=== PATIENT | female | born 1995 | race Caucasian/White ===

== ENCOUNTER 2017-06-07 16:18 | Emergency (ER) | payer SELFPAY ==
[2017-06-07 17:46] LABS: BASOPHILS 0.1 % (0-2); HEMATOCRIT 37.9 % (36.0-48.0); HEMOGLOBIN 12.5 g/dL (12-16); IMMATURE GRANULOCYTES 0.2 % (0-5); LYMPHOCYTES 23.3 % (15-50); MCH 30.6 pg (26.0-34.0); MCV 92.7 fL (80.0-100.0); MEAN PLATELET VOLUME 10.4 fL (7.4-10.4); MONOCYTES 8.8 % (2-11); NEUTROPHILS 66.6 % (40-80); PLATELET COUNT 234 10x3/uL (130-400); RBC 4.09 10x6/uL (4.00-5.40); RDW 14.3 % (11.5-14.5); WBC 8.3 10x3/uL (4.8-10.8)
[2017-06-07 17:54] LABS: APPEARANCE HAZY (CLEAR); BILIRUBIN NEGATIVE (NEGATIVE); COLOR YELLOW (YELLOW); GLUCOSE NEGATIVE (NEGATIVE); KETONE NEGATIVE (NEGATIVE); NITRITE NEGATIVE (NEGATIVE); PROTEIN NEGATIVE (NEGATIVE); UROBILINOGEN NORMAL (NORMAL)
[2017-06-07 17:55] LABS: BACTERIA MODERATE /hpf (NONE SEEN); RED CELLS - URINE OCC /hpf (0-5)
[2017-06-07 18:02] LABS: HCG SERUM NEGATIVE (NEGATIVE)
== END 2017-06-07 18:19 | disposition home or self-care (01) ==
LOC: D.ER 16:18
PROVIDERS: Family Medicine
DX: L03.115 Cellulitis of right lower limb (principal); N76.0 Acute vaginitis; B96.89 Other specified bacterial agents as the cause of diseases classified elsewhere; F17.200 Nicotine dependence, unspecified, uncomplicated

== ENCOUNTER 2018-02-16 14:55 | Emergency (ER) | payer OTHER ==
[~2018-02-16] VITALS: Ht 165.1 cm; Wt 64.1 kg
[2018-02-16 15:15] VITALS: Ht 165.1 cm; Wt 64.1 kg
[2018-02-16 15:56] LABS: BASOPHILS 0.2 % (0-2); EOSINOPHILS 0.2 % (0-7); HEMATOCRIT 40.8 % (36.0-48.0); HEMOGLOBIN 14.2 g/dL (12-16); IMMATURE GRANULOCYTES 0.1 % (0-5); LYMPHOCYTES 12.8 % (15-50); MCH 31.6 pg (26.0-34.0); MCHC 34.8 g/dL (31.0-37.0); MCV 90.9 fL (80.0-100.0); MEAN PLATELET VOLUME 10.4 fL (7.4-10.4); MONOCYTES 5.6 % (2-11); NEUTROPHILS 81.1 % (40-80); PLATELET COUNT 231 10x3/uL (130-400); RBC 4.49 10x6/uL (4.00-5.40); RDW 12.9 % (11.5-14.5); WBC 8.5 10x3/uL (4.8-10.8)
[2018-02-16 15:59] LABS: APPEARANCE HAZY (CLEAR); BILIRUBIN NEGATIVE (NEGATIVE); COLOR YELLOW (YELLOW); GLUCOSE NEGATIVE (NEGATIVE); KETONE LARGE mg/dL (NEGATIVE); NITRITE NEGATIVE (NEGATIVE); PROTEIN 1+ mg/dL (NEGATIVE); SPECIFIC GRAVITY 1.025 (1.005-1.020); UROBILINOGEN NORMAL (NORMAL)
[2018-02-16 16:01] LABS: BACTERIA MANY /hpf (NONE SEEN); MUCUS <1+ /lpf (NONE SEEN); RED CELLS - URINE 0-5 /hpf (0-5)
[2018-02-16 16:25] LABS: ALBUMIN 4.1 g/dL (3.4-5.0); ALKALINE PHOSPHATASE 50 U/L (46-116); BILIRUBIN - TOTAL 0.65 mg/dL (0.2-1.3); CALC OSMOLALITY 270 mosm/kg (275-300); CALCIUM 9.8 mg/dL (8.5-10.1); CARBON DIOXIDE 24.7 mmol/L (21.0-32.0); CHLORIDE - SERUM 101 mmol/L (98-107); CREATININE - SERUM 0.7 mg/dL (0.6-1.3); GLUCOSE 85 mg/dL (74-106); POTASSIUM - SERUM 3.7 mmol/L (3.5-5.1); SODIUM 137 mmol/L (136-145); UREA NITROGEN 8 mg/dL (7-18); eGFR NON AFRICAN AMERICAN > 90 mL/min (90-120)
[2018-02-16 16:45] LABS: ALT (SGPT) 17 U/L (10-68); HCG - QUANTITATIVE (MATERNAL) 144486 mIU/mL
[2018-02-16] MEDS ORDERED: ZOFRAN ODT4 MG/UDTAB PO (18:43)
[2018-02-16] MEDS ORDERED: MACROBID100 MG PO (18:43)
[2018-02-16 19:40] VITALS: BP 114/58
== END 2018-02-16 19:10 | disposition home or self-care (01) ==
LOC: D.ER 14:55
PROVIDERS: Family Medicine
DX: O21.9 Vomiting of pregnancy, unspecified (principal); Z3A.09 9 weeks gestation of pregnancy; O23.41 Unspecified infection of urinary tract in pregnancy, first trimester

== ENCOUNTER 2018-09-21 18:09 | Inpatient (IN) | payer OTHER ==
[~2018-09-21] VITALS: Ht 165.1 cm; Wt 76.2 kg
[~2018-09-21 18:09] MED LIST: MACROBID100 MG PO; ZOFRAN ODT4 MG/UDTAB PO
[2018-09-21] MEDS ORDERED: PREPLUS CA-FE1 EACH PO (18:42)
[2018-09-21 18:43] VITALS: BP 118/62; Ht 165.1 cm; Wt 76.2 kg
[2018-09-21 20:04] LABS: HEMATOCRIT 32.9 % (36.0-48.0); HEMOGLOBIN 10.8 g/dL (12-16); MCH 28.3 pg (26.0-34.0); MCHC 32.8 g/dL (31.0-37.0); MCV 86.4 fL (80.0-100.0); MEAN PLATELET VOLUME 11.1 fL (7.4-10.4); RBC 3.81 10x6/uL (4.00-5.40); RDW 13.4 % (11.5-14.5)
[2018-09-21 20:32] LABS: APPEARANCE SL CLDY (CLEAR); BILIRUBIN NEGATIVE (NEGATIVE); COLOR YELLOW (YELLOW); GLUCOSE NEGATIVE (NEGATIVE); KETONE MODERATE mg/dL (NEGATIVE); NITRITE NEGATIVE (NEGATIVE); PROTEIN NEGATIVE (NEGATIVE); UROBILINOGEN NORMAL (NORMAL)
[2018-09-21 20:33] LABS: BACTERIA MODERATE /hpf (NONE SEEN); EPITHELIAL CELLS 0-5 /hpf (0-5); MUCUS <1+ /lpf (NONE SEEN); RED CELLS - URINE RARE /hpf (0-5); WHITE CELLS - URINE 0-5 /hpf (0-5); YEAST >1+ WITH HYPHAE /hpf (NONE SEEN)
[2018-09-21 23:30] LABS: UDS - AMPHET NEGATIVE QUAL (NEGATIVE); UDS - BARB NEGATIVE QUAL (NEGATIVE); UDS - BENZO NEGATIVE QUAL (NEGATIVE); UDS - COCAINE NEGATIVE QUAL (NEGATIVE); UDS - OPIATE NEGATIVE QUAL (NEGATIVE); UDS - PCP NEGATIVE QUAL (NEGATIVE); UDS - THC NEGATIVE QUAL (NEGATIVE)
[2018-09-22] VITALS (8 sets, daily range): BP systolic 121–139; BP diastolic 70–91
--- NOTE | 2018-09-22 17:29 | NUR ---
FUNDUS IS MIDLINE AND ONE FINGER WIDTH BELOW THE UMBILICUS. MARYLIN PAD IN PLACE, SCANT DISCHARGE NOTED ON PAD. NO CLOTS PRESENT. WILL CONTINUE TO MONITOR.
--- NOTE | 2018-09-22 18:00 | NUR ---
REC'D PT BACK FROM OR POST . PT AA&O X 4. PAIN ASSESSED. PT RATES PAIN 2/10. REPORT REC'D FROM STEVAN OR RECOVERY NURSE. PT ABLE TO TRANSFER SELF TO BED. PIV TO RT HAND W/LR INFUSING VIA GRAVITY. PLACED ON PUMP AT THIS TIME TO INFUSE AT 15ML/HR. 2ND IV SITE IS A SALINE LOCK TO LEFT HAND. FLUSHED AT THIS TIME. PATENT. FUNDUS FIRM,U/1,SCANT LOCHIA NOTED.CLEAN PERIPAD PLACED AT THIS TIME. LOW TRANSVERSE INCISION W/ABD DRESSING PRESENT. FAINT DRAINAGE NOTED. BANDAGE NOT SATURATED.ICE CAP TO INCISION SITE. MODERATE LABIAL SWELLING NOTED. ICE CAP TO PERINEUM. DOMINGUEZ IN PLACE DRAINING VIA GRAVITY AT BEDSIDE. SCD WRAPS IN PLACE BILATERALLY. SCD PUMP TO BE OBTAINED. VITAL SIGNS STABLE. SEE POST OP VITALS FLOWSHEET. REPORT REC'D THAT PT RECEIVED METHERGINE AND HEMOBATE POST DELIVERY AND 1 UNIT PRBCS IN OR/RECOVERY. PT HAS 1 ADDITIONAL UNIT OF PRBC'S READY IN LAB.
--- NOTE | 2018-09-22 18:08 | NUR ---
to room 1220 via bed from rr. awake alert and conversing. iv -rt hand 1000cc ns with pitocin 20 units to pump at 125cc/hr. iv in lt hand flushed with 10ccns per l. anthony marks. abd dressing cd&i. ice cap placed to abd. perineal swelling noted- ice cap to this also. de los santos cath with clear yellow urine noted. scds on.
--- NOTE | 2018-09-22 18:15 | NUR ---
FUNDUS FIRM, U/1, SCANT LOCHIA NOTED.
--- NOTE | 2018-09-22 18:24 | NUR ---
infant in room. nursery nurse in room.
--- NOTE | 2018-09-22 18:30 | NUR ---
FUNDUS FIRM,U/U, SCANT LOCHIA NOTED. SPOUSE AT BEDSIDE.
--- NOTE | 2018-09-22 19:15 | NUR ---
REPORT GIVEN TO Salma HEAD RN
--- NOTE | 2018-09-22 19:33 | NUR ---
PM ROUNDS MADE, PT HOLDING BABY AND VISITING WITH FAMILY AND FRIENDS, INFORMED PT THAT I WILL COME BACK SHORTLY TO DO ASSESSMENT, PT VERBALIZES UNDERSTANDING, DENIES NEEDS AT THIS TIME
[2018-09-22 20:13] LABS: BASOPHILS 0.1 % (0-2); EOSINOPHILS 0 % (0-7); HEMATOCRIT 31.9 % (36.0-48.0); HEMOGLOBIN 10.3 g/dL (12-16); IMMATURE GRANULOCYTES 0.2 % (0-5); LYMPHOCYTES 5.4 % (15-50); MCH 28.1 pg (26.0-34.0); MCHC 32.3 g/dL (31.0-37.0); MCV 87.2 fL (80.0-100.0); MEAN PLATELET VOLUME 10.8 fL (7.4-10.4); MONOCYTES 5.4 % (2-11); NEUTROPHILS 88.9 % (40-80); PLATELET COUNT 207 10x3/uL (130-400); RBC 3.66 10x6/uL (4.00-5.40); RDW 13.6 % (11.5-14.5)
[2018-09-22 20:25] LABS: WBC 14.4 10x3/uL (4.8-10.8)
--- NOTE | 2018-09-22 20:45 | NUR ---
ASSESSMENT PER FLOW SHEET, VS OBTAINED, IV IN RIGHT HAND INTACT WITH NO REDNESS OR EDEMA INFUSING NS WITH PITOCIN VIA PUMP AT 125 ML/HR PER MD ORDERS, SEE EMAR, PT RATES INC PAIN 07/24, USING DILAUDID LAUNDRY CLERK INST, FF, ML, U/U, LITE TO MOD BLEEDING NOTED WITH NO CLOTS, MARYLIN CARE DONE WITH WET WARM WASH CLOTHS, MARYLIN PAD AND BLUE CHUX CHANGED, PT GIA WELL, DOMINGUEZ CATH INTACT DRAINING CLEAR YELLOW URINE, EMPTIED DOMINGUEZ AT THIS TIME, [employer] WITH DRESSING CDI, FRESH ICE PACK TO ABD, SCD'S NOTED TO BE OFF AT THIS TIME, SCD'S PLACED AND WORKING PROPERLY, PT DENIES NEEDS AT THIS TIME, BABY IN NSY, FAMILY BACK TO ROOM, CHAIRS PROVIDED FOR FAMILY
--- NOTE | 2018-09-22 21:30 | NUR ---
PT HOLDING BABY, FAMILY MEMBER AT BEDSIDE, FOB TOOK SOME BELONGINGS HOME, PT DENIES NEEDS AT THIS TIME
--- NOTE | 2018-09-22 22:40 | NUR ---
PT HOLDING BABY, VISITING WITH FOB AND FAMILY, EMPTIED 225 MLS OF CLEAR YELLOW URINE FROM DOMINGUEZ CHAMBER TO DOMINGUEZ BAG, PT USING SOCIAL [employer] INTERN INST, RATES INC PAIN 1-2, ADM METHERGINE PO PER MD ORDERS, SEE EMAR, PT DENIES NEEDS AT THIS TIME
[2018-09-23 00:30] VITALS: BP 127/79
--- NOTE | 2018-09-23 00:30 | NUR ---
PT AWAKE, HOLDING BABY, BABY TO FOB'S ARMS, VS OBTAINED, EMPTIED 250 MLS OF CLEAR YELLOW URINE FROM DOMINGUEZ CHAMBER TO DOMINGUEZ BAG, MARYLIN CARE DONE WITH WET WARM WASH CLOTHS, MARYLIN PAD AND BLUE CHUX CHANGED, LITE-MOD BLEEDING NOTED WITH NO CLOTS, ICE PACK TO PERINIUM, FF, ML, U/U, FRESH ICE PACK TO ABD, SCD'S CONTINUE ON AND WORKING PROPERLY, DENIES NEEDS AT THIS TIME, BED IN LOW POSITION, SIDE RAILS X 2, CALL LIGHT IN REACH
--- NOTE | 2018-09-23 00:50 | NUR ---
NEW BAG OF NS WITH PITOCIN HUNG INFUSING VIA PUMP AT 125 ML/HR PER MD ORDERS, SEE EMAR
--- NOTE | 2018-09-23 02:20 | NUR ---
PT AWAKE, FOB CHANGING INFANTS DIAPER, PT REQUESTED AND SERVED FRESH H20, DENIES FURTHER NEEDS
[2018-09-23 04:33] VITALS: BP 131/87
--- NOTE | 2018-09-23 04:33 | NUR ---
ROUNDS COMPLETED, VSS, AFEBRILE, RESP EVEN AND UNLABORED, PT REPORTS PAIN A 6 ON NUMERIC PAIN SCALE, ENCOURAGED TO USE ORE SAMPLER BUTTON AND INSTRUCTIONS GIVEN ON USE, PT STATES "OH I DIDN'T KNOW I COULD PUSH IT THAT OFTEN" AND THEN DEMONSTRATES USE. ENCOURAGED TO NOTIFY THIS RN IF PAIN UNRELIEVED OR REMAINS UNACCEPTABLE, PT STATES UNDERSTANDING, FUNDUS FIRM AT U/2 AND MIDLINE, LOCHIA RUBRA LIGHT AMOUNT WITH PEA-SIZED CLOTS X2 NOTED ON PERIPAD, PERICARE AND DOMINGUEZ CARE PROVIDED, PERIPADS REPLACED, FRESH ICE PACK OVERLAY APPLIED TO LOW TRANSVERSE INCISIONAL DRESSING, DRESSING CDI TO INSPECTION AT THIS TIME, DOMINGUEZ TO GRAVITY DRAINAGE NOTED WITH URINE IN TUBING AND COLLECTION CHAMBER. SIPS ICE WATER PROVIDED UPON REQUEST, IN FOB'S ARMS AT PRESENT NAD NOTED. CALL LIGHT AND ORE SAMPLER BUTTON WITHIN EASY REACH OF PT, CONTINUE TO MONITOR.
[2018-09-23 06:21] LABS: BASOPHILS 0 % (0-2); EOSINOPHILS 0.1 % (0-7); HEMATOCRIT 28.1 % (36.0-48.0); IMMATURE GRANULOCYTES 0.2 % (0-5); LYMPHOCYTES 9.7 % (15-50); MCV 87.3 fL (80.0-100.0); MEAN PLATELET VOLUME 10.6 fL (7.4-10.4); MONOCYTES 6.6 % (2-11); NEUTROPHILS 83.4 % (40-80); RBC 3.22 10x6/uL (4.00-5.40); RDW 13.6 % (11.5-14.5); WBC 11.4 10x3/uL (4.8-10.8)
[2018-09-23 06:28] LABS: PLATELET COUNT 163 10x3/uL (130-400)
--- NOTE | 2018-09-23 06:32 | NUR ---
PT HOLDING BABY, PT INFORMED ME THAT DR MCDERMOTT WAS IN EARLIER, PT HAD QUESTIONS REGARDING THE PAIN MED, TALKED TO PT REGARDING POC, PT VERBALIZES UNDERSTANDING, DENIES FURTHER QUESTIONS OR NEEDS, FOB AT BEDSIDE
[2018-09-23 07:37] LABS: RAPID PLASMA REAGIN Non Reactive (Non Reactive)
--- NOTE | 2018-09-23 08:40 | NUR ---
NS WITH 20 UNITS PITOCIN INFUSION COMPLETED PER ORDERS D/C ALONG WITH SUPERVISOR CIGAR MAKING MACHINE. PT STATES UNDERSTANDING THAT PO PAIN MED WAS AVAILABLE BUT WOULD HAVE TO BE ASKED FOR. FAMILY AT BEDSIDE WITH ALSO IN ROOM.
--- NOTE | 2018-09-23 09:09 | NUR ---
PAIN MEDS GIVEN SCANNED TO EMAR, PT RATES PAIN AT INCISION SITE AT 7/10. BIKINI INCISION CLEAN AND DRY WITH MARIE IN PLACE, FUNDUS FIRM WITH MASSAGE AT U/1, LIGHT BLEEDING TO MARYLIN PAD WITHOUT CLOTS. BLUE PAD AND TOWELS CHANGED WITH PT LIFTING HER BOTTOM OFF THE BED. IV TO RIGHT HAND SALINE LOCKED, LEFT HAND WITH SALINE LOCK IN PLACE WITHOUT REDDNESS BUT PT COMPLAINS OF INCREASE TENDERNESS AT THIS SITE, STATES UNDERSTANDING THAT ORDERS WOULD BE REVIEWED TO SEE IF SALINE LOCK COULD BE REMOVED. DOMINGUEZ CATH TO BEDSIDE DRAIN WITH 1800ML CLEAR URINE REMOVED INTACT. BILAT SCD'S REMOVED, PT MOVING AROUND IN BED FREQUENTLY. DENIES NAUSEA AT THIS TIME. INFANT IN ROOM FOR FEEDING. PT UNDERSTANDS TO CALL FOR NURSE WHEN SHE FEELS NEED TO VOID. SIDE RAILS UP X 2 WITH CALL LIGHT IN REACH. FAMILY MEMBER ALSO AT BEDSIDE.
--- NOTE | 2018-09-23 10:45 | NUR ---
CALLED TO ROOM, PT REQUESTING TO GET UP TO BATHROOM. SHE IS ABLE TO MOVE HERSELF TO SITTING ON SIDE OF THE BED, DENIES NAUSEA BUT DOES C/O DIZZINESS, ENCOURAGED TO KEEP HER HEAD UP AND WAIT BEFORE STANDING UP. ONCE SHE RAISES HER HEAD SHE STATES DIZZINESS GOES AWAY. AMB TO BATHROOM WITH LITTLE ASSISTANCE NEEDED, PRIVACY GIVEN. PINK PAD ON BED CHANGED ALONG WITH PILLOW CASES. PT ABLE TO VOID 150ML AND DO HER OWN MARYLIN CARE. ASSISSTANCE GIVEN WITH MARYLIN PAD/MESH BREIFS. SHOWN TO USE MARYLIN PAD OVER INCISION TO PREVENT IRRATION. BACK TO BED AND POSITIONED FOR COMFORT WITH NO ASSISTANCE NEEDED.
--- NOTE | 2018-09-23 11:07 | NUR ---
Kat Rabago 09/23/18 LE@ 10:00 S: Patient states she has been working on trying to get infant to latch. Baby will just sleep and it's hard to wake for feeding. States for last feeding she tried latching baby for about 5 or so minutes then baby was given a bottle. Infant ate not to long ago. She would like to breastfeed just thinks she needs help. Verbally agrees to ask nursery staff for help with next feeding. O: Patient in bed. Family member in room holding . Asked how can I help with and congratulated on delivery. Informed patient takes time, practice, and patience in the beginning. Explained breastmilk composition, benefits of skin to skin, positions, normal feeding patterns for an exclusively breastfed infant, how to determine if baby is latched correctly, feeding cues, tips on waking a sleeping baby, and how benefits of practicing responsive feeding. Explained how to verify infant is getting enough milk by diaper count outputs. Please ask for help as needed with next feedings from nursery staff to latch infant. Asked if any other questions or concerns. A: Patient learning to breastfeed with baby, needs help with latching. P: Continue to support during hospital visit. Jason Brar, CLC
--- NOTE | 2018-09-23 11:10 | NUR ---
SALINE LOCK REMOVED FROM LEFT HAND, PT STATES THAT SEEMS TO BE HURTING MORE NOW, STILL NO REDDNESS OR SWELLING BUT FLINCHES WHEN AREA IS TOUCHED, REMOVED WITH CATH INTACT. LARGE ICE WATER PER REQUEST, IN CRIB AT BEDSIDE. SIDE RAILS UP X 2 WITH PHONE AND CALL LIGHT IN REACH.
--- NOTE | 2018-09-23 12:30 | NUR ---
Up to void with nurse at bedside but no assistance was needed. Voided 400ml without complaint and able to complete [place] care. Request made for pain med.
--- NOTE | 2018-09-23 13:04 | NUR ---
Pain med given as scanned to emar. Pt amb in halls pushing in crib with her mother at her side.
--- NOTE | 2018-09-23 13:50 | NUR ---
Sitting up in bed eating food brought in by family member. States that the burning at incision site is much better. Denies needs. in room, side rails up x2 with call light with in pt reach.
--- NOTE | 2018-09-23 14:57 | NUR ---
DR MCDERMOTT ON UNIT, VERIFIED VERBALLY METHERGINE ORDER. ORDER RECEIVED TO D/C AFTER 3 DOSES HAVE BEEN GIVEN.
[2018-09-23 20:33] VITALS: BP 124/83
--- NOTE | 2018-09-23 20:33 | NUR ---
PT REC'D IN BED AT THIS TIME. STATES THAT PAIN IS A 2 AT THIS TIME. LUNGS CLEAR. BS+ PT DENIES PASSING FLATUS AT THIS TIME. MARIE INTACT TO THE ABDOMEN. NO S/S OF INFECTION NOTED AT THIS TIME. . FUNDUS FIRM AND AT U/2 WITH SCANT LOCHIA NOTED. PT VOIDING WITHOUT DIFFICULTY AT THIS TIME. NO ACUTE DISTRESS NOTED AT THIS TIME. Salma CONNOR RN
--- NOTE | 2018-09-23 22:15 | NUR ---
PT IN SHOWER AT THIS TIME. BED LINENS CHANGED. NO DISTRESS NOTED. Salma CONNOR. RN
--- NOTE | 2018-09-23 23:55 | NUR ---
PT STATES PAIN IS A 3 AT THIS TIME. WILL CONTINUE TO MONITOR THIS SHIFT. Salma CONNOR RN
--- NOTE | 2018-09-24 01:58 | NUR ---
PT REQUESTING WATER. PT TAKEN WATER AT THIS TIME. DENIES ANY OTHER NEEDS AT THIS TIME. Salma HINTON RN
[2018-09-24 05:12] VITALS: BP 113/62
--- NOTE | 2018-09-24 05:12 | NUR ---
PT REC'D IN BED AT THIS TIME. COMPLAINS OF PAIN AT A 4 VITAL SIGNS STABLE AT THIS TIME. VOIDING WELL. Salma CONNOR RN
--- NOTE | 2018-09-24 05:27 | NUR ---
PT MEDICATED WITH NORCO AND IBUPROFEN FOR PAIN OF 4. WILL CONTINUE TO MONITOR PAIN. Salma CONNOR RN
--- NOTE | 2018-09-24 07:00 | NUR ---
DR MCDERMOTT HERE TO SEE PT.
[2018-09-24 08:18] VITALS: BP 128/75
--- NOTE | 2018-09-24 08:28 | NUR ---
ASSESSMENT DONE. PT UP AND ABOUT IN ROOM. DENIES NEEDS AT THIS TIME. SCANT LOCHIA NOTED ON PAD.
--- NOTE | 2018-09-24 11:11 | NUR ---
D/C IV SALINE LOCK- CATH TIP INTACT. BANDAIDE APPLIED. REQUESTING PAIN MEDICATION. CO PAIN AT INCISION-RATES A 3 ON SCALE OF 0-10.
--- NOTE | 2018-09-24 14:15 | NUR ---
THIS RN TO ROOM FOR PT CHECK. PT DENIES NEEDS AT THIS TIME, STATES IS READY FOR D/C TO HOME. WILL PROCEED WITH DISCHARGE ORDERED.
[2018-09-24] MEDS ORDERED: HYDROCODON-ACE1 EA10 PO (15:03)
[2018-09-24] MEDS ORDERED: IBUPROFEN600 MG PO (15:04)
--- NOTE | 2018-09-24 15:22 | NUR ---
PT GIVEN D/C INSTRUCTIONS WELL WRITTEN PRESCRIPTIONS FOR PAIN CONTROL POST D/C TO HOME PER DR MCDERMOTT. PT VERBALIZES UNDERSTANDING AND DENIES QUESTIONS, SIGNS CHART COPIES. PT ADMIN FLU VACCINE PER ORDER AND PT REQUEST TO RIGHT DELTOID, SEE EMAR FOR DOC. PT INSTRUCTED TO CALL WHEN IS BUCKLED IN CARSEAT AND READY FOR W/C OUT. UNDERSTANDING VERBALIZED.
--- NOTE | 2018-09-24 15:40 | NUR ---
PT TO UNIT DESK STATING SHE IS READY FOR W/C OUT. THIS RN TO ROOM. PT HAS IN [facility] CIRCUMCISION NEEDS CHECKED FOR BLEEDING BEFORE DISCHARGE. THIS RN ASSESSES CIRC SITE, NO ACTIVE BLEEDING NOTED. GAUZE MOISTENED WITH WARM WATER AND REMOVED, NEW GAUZE APPLIED WITH VASELINE AND CLEAN DIAPER. PT PLACES IN CARSEAT AND LENKA APPROPRIATELY. PT TAKEN OUT VIA W/C TO PRIVATE VEHICLE FOR D/C TO HOME, ACCOMPANIED BY FAMILY. SIG OTHER TO DRIVE PT HOME.
== END 2018-09-24 15:40 | disposition home or self-care (01) | DRG 787 ==
LOC: D.LD 18:09 → D.WS 18:09 → D.LD 09-23 19:03
PROVIDERS: ADMIT Obstetrics & Gynecology; ATTEND Obstetrics & Gynecology
PROC: 3E033VJ Introduction of Other Hormone into Peripheral Vein, Percutaneous Approach (ICD-10-PCS; 2018-09-21)
PROC: 10907ZC Drainage of Amniotic Fluid, Therapeutic from Products of Conception, Via Natural or Artificial Opening (ICD-10-PCS; 2018-09-22)
PROC: 10D00Z1 Extraction of Products of Conception, Low, Open Approach (ICD-10-PCS; principal; 2018-09-22 15:21)
DX: O99.344 Other mental disorders complicating childbirth (principal); O99.324 Drug use complicating childbirth; F41.9 Anxiety disorder, unspecified; Z3A.39 39 weeks gestation of pregnancy; Z37.0 Single live birth; F12.90 Cannabis use, unspecified, uncomplicated; O62.2 Other uterine inertia